=== PATIENT | male | born 1980 | race Caucasian/White ===

== ENCOUNTER 2016-05-30 19:42 | Emergency (ER) | payer OTHER ==
[~2016-05-30 19:42] MED LIST: ABILIFY20 MG PO; AUGMENTIN875 M1 PO; DICLOFENAC PO; FLEXERIL10 M1 PO; HYDROCODON-ACE1 EAC5 PO; KLONOPIN0.5 MG; KLONOPIN0.5 MG PO; KLONOPIN1 MG PO; LORTAB 7.5-5001 TAB PO; NO MEDICATIONS; PREDNISONE PO; PROZAC PO; SEROQUEL PO
== END 2016-05-30 19:43 | disposition home or self-care (01) ==
LOC: SED 19:42
DX: L03.115 Cellulitis of right lower limb (principal); F41.9 Anxiety disorder, unspecified; F17.200 Nicotine dependence, unspecified, uncomplicated
CPT/HCPCS: 99282